=== PATIENT | male | born 1965 | race Native Hawaiian/Other Pacific Islander ===

== ENCOUNTER 2016-12-08 10:26 | Emergency (ER) | payer OTHER ==
[~2016-12-08] VITALS: Ht 180.3 cm; Wt 125.0 kg
[~2016-12-08 10:26] MED LIST: PRED20 PO; WHIT15OI RIGHT EYE; ZOVI800T13 PO
[2016-12-08 10:27] VITALS: BP 180/110; PULSE 80; RESP 24; TEMP 97.6; O2SAT 99
[2016-12-08] MEDS ORDERED: SODIUM CHLOR 0.9% 1000 ML INJ 1,000 ML IV SCH (11:21)
--- NOTE | 2016-12-08 11:23 | PD ---
HPI Chief Complaint: Abdominal Pain Time Seen by Provider: 11:23 Travel History International Travel<30 days: No Contact w/Intl Traveler<30days: No Traveled to known affect area: No History of Present Illness HPI 51-year-old male presents to the emergency department for evaluation of right lower quadrant abdominal pain that began 4 hours ago. Patient states that this was sudden onset abdominal pain. States that it is sharp and constant. Denies any aggravating or alleviating factors. Symptoms are moderate in severity. States that he has had some nausea but no vomiting. Complains of chills. Denies fever, vomiting, diarrhea, constipation, dysuria, hematuria. Denies any prior abdominal surgeries. States he has never had pain like this before. Denies any medical conditions. PCP Dr. Martinez. No other complaints. [facility] Past Medical History Medical History: Denies Significant Hx Cerebrovascular Accident: No (BELLS PALSY) Social History Alcohol Use: No Tobacco Use: No (QUIT 20 YEARS AGO) Substance Use: No Allergies-Medications (Allergen,Severity, Reaction): Coded Allergies: No Known Allergies (Unverified , 12/08/16) Reported Meds & Prescriptions Reported Meds & Active Scripts Active Review of Systems Except as stated in HPI: all other systems reviewed are Neg Physical Exam Narrative GENERAL: Obese male patient in no acute distress, appears to be in a moderate amount of pain. SKIN: Warm and dry. HEAD: Normocephalic and atraumatic. EYES: No injection, drainage, or hyphema noted. PERRLA. EOMI. ENT: No nasal drainage noted. Oropharynx is clear. NECK: Supple and the trachea is midline. CARDIOVASCULAR: Regular rate and rhythm. RESPIRATORY: Breath sounds are equal bilaterally with no accessory muscle use, wheezing, rhonchi, or crackles. GASTROINTESTINAL: Mild right lower quadrant tenderness to palpation. No rebound tenderness or guarding. Abdomen is soft and nondistended. Negative Marino's sign. MUSCULOSKELETAL: No obvious deformities, swelling, cyanosis, or ecchymosis is present throughout the upper and lower extremities. Patient has full range of motion without any signs of neurovascular compromise. NEUROLOGICAL: Awake, alert, and oriented. Normal speech and gait. Cranial nerves are grossly intact. Data Data Last Documented VS Vital Signs Date Time Temp Pulse Resp B/P Pulse Ox O2 Delivery O2 Flow Rate FiO2 12/08/16 11:45 82 16 167/107 96 12/08/16 10:27 97.6 Room Air Orders Complete Blood Count With Diff (12/08/16 11:21) Comprehensive Metabolic Panel (12/08/16 11:21) Lipase (12/08/16 11:21) Prothrombin Time / Inr (Pt) (12/08/16 11:21) Act Partial Throm Time (Ptt) (12/08/16 11:21) Urinalysis - C+S If Indicated (12/08/16 11:21) Ct Abd/Pel W/O Iv Contrast (12/08/16 11:21) Iv Access Insert/Monitor (12/08/16 11:21) Ecg Monitoring (12/08/16 11:21) Oximetry (12/08/16 11:21) Morphine Inj (Morphine Inj) (12/08/16 11:30) Ondansetron Inj (Zofran Inj) (12/08/16 11:30) Sodium Chlor 0.9% 1000 Ml Inj (Ns 1000 M (12/08/16 11:21) Sodium Chloride 0.9% Flush (Ns Flush) (12/08/16 11:30) Labs Laboratory Tests Test 12/08/16 12/08/16 11:45 14:00 White Blood Count 10.1 TH/MM3 Red Blood Count 4.79 MIL/MM3 Hemoglobin 14.8 GM/DL Hematocrit 43.9 % Mean Corpuscular Volume 91.7 FL Mean Corpuscular Hemoglobin 31.0 PG Mean Corpuscular Hemoglobin 33.8 % Concent Red Cell Distribution Width 13.8 % Platelet Count 190 TH/MM3 Mean Platelet Volume 9.4 FL Neutrophils (%) (Auto) 75.7 % Lymphocytes (%) (Auto) 17.3 % Monocytes (%) (Auto) 5.6 % Eosinophils (%) (Auto) 0.8 % Basophils (%) (Auto) 0.6 % Neutrophils # (Auto) 7.6 TH/MM3 Lymphocytes # (Auto) 1.8 TH/MM3 Monocytes # (Auto) 0.6 TH/MM3 Eosinophils # (Auto) 0.1 TH/MM3 Basophils # (Auto) 0.1 TH/MM3 CBC Comment DIFF FINAL Differential Comment Prothrombin Time 10.7 SEC Prothromb Time International 1.0 RATIO Ratio Activated Partial 25.4 SEC Thromboplast Time Sodium Level 140 MEQ/L Potassium Level 3.9 MEQ/L Chloride Level 106 MEQ/L Carbon Dioxide Level 25.6 MEQ/L Anion Gap 8 MEQ/L Blood Urea Nitrogen 21 MG/DL Creatinine 1.20 MG/DL Estimat Glomerular Filtration 64 ML/MIN Rate Random Glucose 156 MG/DL Calcium Level 9.3 MG/DL Total Bilirubin 0.6 MG/DL Aspartate Amino Transf 28 U/L (AST/SGOT) Alanine Aminotransferase 41 U/L (ALT/SGPT) Alkaline Phosphatase 79 U/L Total Protein 8.2 GM/DL Albumin 4.0 GM/DL Lipase 126 U/L Urine Color YELLOW Urine Turbidity CLEAR Urine pH 5.5 Urine Specific [place] 1.011 Urine Protein 30 mg/dL Urine Glucose (UA) NEG mg/dL Urine Ketones NEG mg/dL Urine Occult Blood LARGE Urine Nitrite NEG Urine Bilirubin NEG Urine Urobilinogen LESS THAN 2.0 MG/DL Urine Leukocyte Esterase NEG Urine RBC 64 /hpf Urine WBC 2 /hpf Urine Squamous Epithelial <1 /hpf Cells Urine Hyaline Casts 1 /lpf Urine Mucus FEW /lpf Microscopic Urinalysis Comment CULT NOT INDICATED MDM Medical Decision Making Medical Screen Exam Complete: Yes Emergency Medical Condition: Yes Differential Diagnosis Kidney stones versus appendicitis versus colitis versus diverticulitis Narrative Course 51-year-old male presents to the emergency room for evaluation of right lower quadrant abdominal pain that began this morning. Patient is afebrile. He is hypertensive with a blood pressure 180/110. He does appear to be in a moderate amount of pain. Mild right lower quadrant tenderness to palpation, no peritoneal signs. IV access is obtained, labs and been drawn and sent. Patient is placed on cardiac tonometry and pulse oximetry monitoring. Patient is administered IV fluids, morphine and Zofran. CT of the abdomen and pelvis has been ordered and is pending. CBC is unremarkable. CMP is unremarkable. Coags are unremarkable. CT of the abdomen and pelvis shows perinephric stranding about the right kidney with tiny 2 mm stone at the right ureteropelvic junction. Second tiny stone may be in the bladder. Urinalysis shows 30 protein, large occult blood, 64 red blood cells and few mucus. No signs of infection. Patient reporting great improvement of symptoms, pain has resolved. Patient is advised to follow-up with a urologist as an outpatient. He'll be discharged home. Patient verbalizes understanding and agreement with treatment plan. Diagnosis Primary Impression: Kidney stone on right side Referrals: Urologist Patient Instructions: General Instructions, Kidney Stones (ED) Additional Instructions: Take medication as prescribed. Do not take Lortab with alcohol or driving. Follow-up with a Urologist. Return to the ED for any acute worsening of symptoms. Med/Other Pt SpecificInfo: Prescription(s) given Scripts Hydrocodone-Acetaminophen (Lortab)5-325 Mg Tab1 Tab PO Q6H PRN (PAIN) #15 TAB Ref 0 Prov:Svetlana Hanson MD 12/08/16 Disposition: 01 DISCHARGE HOME Condition: Stable Johana Galvan Dec 08, 2016 11:23
[2016-12-08] MEDS ORDERED: MORPHINE SULFATE 4 MG/ML INJ IV PUSH ONE (11:30)
[2016-12-08] MEDS ORDERED: SODIUM CHLORIDE 0.9% FLUSH 10 ML FLUSH IV FLUSH PRN (11:30)
[2016-12-08] MEDS ORDERED: ONDANSETRON HCL 4 MG/2 ML VIAL IVP ONE (11:30)
[2016-12-08 11:45] VITALS: BP 167/107; PULSE 82; RESP 16; O2SAT 96
[2016-12-08 12:07] LABS: AUTOMATED NEUTROPHIL # 7.6 TH/MM3 (1.8-7.7); BASOPHIL # 0.1 TH/MM3 (0-0.2); BASOPHIL % 0.6 % (0.0-2.0); EOSINOPHIL # 0.1 TH/MM3 (0-0.4); EOSINOPHIL % 0.8 % (0.0-4.0); HEMATOCRIT 43.9 % (39.0-51.0); HEMO FLAGS DIFF FINAL; LYMPH % 17.3 % (9.0-44.0); LYMPHOCYTE # 1.8 TH/MM3 (1.0-4.8); MEAN CELL VOLUME 91.7 FL (80.0-100.0); MEAN CORPUSCULAR HGB CONC 33.8 % (32.0-36.0); MONO % 5.6 % (0.0-8.0); NEUT % 75.7 % (16.0-70.0); PLATELET COUNT 190 TH/MM3 (150-450); RED BLOOD COUNT 4.79 MIL/MM3 (4.50-5.90); RED CELL DISTRIBUTION WIDTH 13.8 % (11.6-17.2); WHITE BLOOD COUNT 10.1 TH/MM3 (4.0-11.0)
[2016-12-08 12:25] LABS: ALT (GPT) 41 U/L (12-78); ANION GAP 8 MEQ/L (5-15); APTT (PATIENT) 25.4 SEC (24.3-30.1); AST (GOT) 28 U/L (15-37); BICARBONATE 25.6 MEQ/L (21.0-32.0); BLOOD UREA NITROGEN 21 MG/DL (7-18); CHLORIDE 106 MEQ/L (98-107); GLOMERULAR FILTRATION RATE 64 ML/MIN (>89); POTASSIUM 3.9 MEQ/L (3.5-5.1); PROTHROMBIN TIME - PATIENT 10.7 SEC (9.8-11.6); SODIUM (NA) 140 MEQ/L (136-145)
[2016-12-08 12:27] LABS: ALKALINE PHOSPHATASE 79 U/L (45-117); TOTAL BILIRUBIN ADULT 0.6 MG/DL (0.2-1.0)
--- NOTE | 2016-12-08 13:46 | RADRPT ---
EXAM DATE/TIME: 12/08/2016 12:38 [facility] COMPARISON: No previous studies available for comparison. INDICATIONS : Nausea and right lower abdomen pain today. ORAL CONTRAST: No oral contrast ingested. RADIATION DOSE: 17.03 CTDIvol (mGy) MEDICAL HISTORY : None SURGICAL HISTORY : None. ENCOUNTER: Initial ACUITY: 1 day PAIN SCALE: 9/10 LOCATION: Right lower quadrant TECHNIQUE: Volumetric scanning of the abdomen and pelvis was performed. Using automated exposure control and ad justment of the mA and/or kV according to patient size, radiation dose was kept as low as reasonably achievable to obtain optimal diagnostic quality images. FINDINGS: Lung bases are clear. Liver, spleen, pancreas, adrenals and left kidney unremarkable. There is marked perinephric stranding on the right with a tiny 2 mm stone at the right ureterovesical junction. Minimal vascular calcifications are noted. Phleboliths are present in the pelvis. I believe there is a second stone within the bladder that may have been recently passed. CONCLUSION: Perinephric stranding about the right kidney with tiny stone at the right ureteropelvic junction. Se cond tiny stone may be in the bladder as well. Evaristo Wright MD FACR on December 08, 2016 at 13:04 Board Certified Radiologist. This report was verified electronically.
[2016-12-08 14:44] LABS: BLOOD, URINE LARGE (NEG); COMMENT (UR) CULT NOT INDICATED; CULTURE IF INDICATED CULT NOT INDICATED; GLUCOSE,URINE NEG (NEG); HYALINE CAST, URINE 1 /lpf (RARE); KETONE, URINE NEG (NEG); MUCUS URINE FEW /lpf (OCC); NITRITE,URINE NEG (NEG); PH, URINE 5.5 (5.0-8.5); SQUAMOUS EPITHELIAL CELL URINE <1 /hpf (0-5); URINE COLOR YELLOW (YELLW/STRAW)
[2016-12-08] MEDS ORDERED: HYDR-3533 PO (14:53)
== END 2016-12-08 16:20 | disposition home or self-care (01) ==
LOC: NEPC 10:26
DX: N20.0 Calculus of kidney (principal)
CPT/HCPCS: 74176; 80053; 81001; 83690; 85025; 85610; 85730; 96361; 96374; 96375; 99284; J2270; J2405; J7030